=== PATIENT | female | born 1955 | race Caucasian/White ===

== ENCOUNTER 2024-02-01 13:34 | Emergency (ER) | payer MEDICARE, BC ==
[2024-02-01] MEDS: EPINEPHrine 1 MG/ML SDV IM ONE (13:42)
[2024-02-01] MEDS: EPINEPHrine 1 MG/ML SDV ONE (13:43)
[2024-02-01] MEDS: methylPREDNISolone Sodium Succinate 125 MG/2 ML SDV IVPUSH ONE (13:45)
[2024-02-01] MEDS: diphenhydrAMINE 50 MG/ML SDV IVPUSH ONE (13:46)
[2024-02-01] MEDS: Famotidine 20 MG/2 ML SDV IVPUSH ONE (13:54)
== END 2024-02-01 15:30 | disposition home or self-care (01) ==
LOC: JD.ED 13:34
DX: T63.441A Toxic effect of venom of bees, accidental (unintentional), initial encounter (principal); Z88.5 Allergy status to narcotic agent
CPT/HCPCS: 96372; 96374; 96375; 99282; J0171; J1200; J2919; J3490